=== PATIENT | female | born 1995 ===

== ENCOUNTER 2020-09-10 16:24 | Inpatient (IN) | payer OTHER ==
--- NOTE | 2020-09-10 17:10 | History and Physical Report ---
History of Present Illness Date of examination: 09/10/20 Date of admission: 09/10/20 Chief complaint: c/o uc since this am History of present illness: 24 y/o presents to [facility] in active labor. Pt states she has been having uc since this am. She denies LOF or VB. Pt initiated her pnc at [facility] @ 10wks. Pt states she has had an uncomplicated preg w/o problems. Med/surg/social/family hx is unremarkable. Her GBS is neg and she is rubella NI. She was admitted to L&D for delivery. Past History Past Medical History: no pertinent history Past Surgical History: no surgical history Family/Genetic History: none Social history: no significant social history, full code - Obstetrical History Expected Date of Delivery: 09/24/20 Actual Gestation: 38 Week(s) 0 Day(s) : 1 Para: 0 Medications and Allergies Allergies Allergy/AdvReac Type Severity Reaction Status Date / Time No Known Allergies Allergy Verified 09/10/20 17:04 Home Medications Medication Instructions Recorded Confirmed Last Taken Type Monistat 7 Vag Cream cream VG 09/10/20 1 Day Ago History ~09/09/20 One Daily Tablet 1 tab PO DAILY 09/10/20 09/10/20 1 Day Ago History ~09/09/20 Review of Systems All systems: negative Eyes: deferred Ears, nose, mouth and throat: deferred Breasts: normal Genitourinary: normal appearance Rectal Exam: normal exam-external/orifice - Vital Signs Vital signs: Vital Signs Pulse BP Pulse Ox 81 110/66 100 09/10/20 16:45 09/10/20 16:45 09/10/20 16:45 Temp Pulse Resp BP Pulse Ox 97.6 F 78 15 111/74 97 09/10/20 16:49 09/10/20 17:02 09/10/20 16:49 09/10/20 17:02 09/10/20 16:55 - Physical Exam Breasts: Positive: normal Abdomen: Positive: normal appearance, soft, normal bowel sounds Genitourinary (Female): Positive: normal external genitalia, normal perenium Vulva: both: normal Vagina: Positive: normal moisture Uterus: Positive: enlarged, normal contour, other (gravid) Adnexa: both: normal Anus/Rectum: Positive: normal perianal skin Extremities: Positive: normal - Obstetrical FHR: auscultation normal, category 1 Uterine Contraction Monitor Mode: External Cervical Dilatation: 9 Cervical Effacement Percentage: 100 station: -2 Uterine Contraction Pattern: Regular Uterine Tone Measurement Phase: Resting Uterine Contraction Intensity: Strong/Firm Results All other labs normal. Assessment and Plan A: IUP@ 38.1 wks Rubella NI p: Admit to L&D Continuos monitoring Offer rubella vaccine pp Anticipate - Patient Problems (1) Supervision of normal IUP (intrauterine ) in primigravida Current Visit: Yes Status: Acute (2) GBS screening not performed Current Visit: Yes Status: Acute
[2020-09-10] MEDS ORDERED: LACTATED RINGERS 1,000 ML ONE (17:15)
[2020-09-10] MEDS ORDERED: LOPERAMIDE 2 MG CAP PO PRN (17:16)
[2020-09-10] MEDS ORDERED: CARBOPROST TROMETHAMINE 250 MCG/1 ML INJ IM PRN (17:16)
[2020-09-10] MEDS ORDERED: MINERAL OIL 30 ML ORAL LIQD PO PRN ×2 (17:16→19:24)
[2020-09-10] MEDS ORDERED: TERBUTALINE 1 MG/1 ML INJ SUB-Q PRN (17:16)
[2020-09-10] MEDS ORDERED: AMPICILLIN/NS 2 GM/100 ML 2 GM/100 ML BAG IV ONE (17:16)
[2020-09-10] MEDS ORDERED: ePHEDrine SULFATE 50 MG/1 ML INJ IV PRN (17:16)
[2020-09-10] MEDS ORDERED: miSOPROStol 200 MCG TAB PR PRN (17:16)
[2020-09-10] MEDS ORDERED: LIDOCAINE (2%) 20 MG/1 ML VIAL 20 ML MDV INFILTRATI ONE (17:16)
[2020-09-10] MEDS ORDERED: METHYLERGONOVINE MALEATE 0.2 MG/ML VIAL IM PRN (17:16)
[2020-09-10] MEDS ORDERED: OXYTOCIN 10 UNIT/1 ML INJ IM PRN (17:16)
[2020-09-10] MEDS ORDERED: LACTATED RINGERS 1,000 ML IV SCH (17:30)
[2020-09-10 17:53] LABS: Hematocrit 37.4 % (30.3-42.9); Hemoglobin 12.5 gm/dl (10.1-14.3); Mean Corpuscular HGB Conc 34 % (30-34); Mean Corpuscular Volume 88 fl (79-97); Platelet Count 240 K/mm3 (140-440); Red Blood Count 4.24 M/mm3 (3.65-5.03); Red Cell Distribution Width 14.4 % (13.2-15.2)
[2020-09-10] MEDS ORDERED: OXYTOCIN DRIP 30 UNITS/500 ML BAG IV SCH ×2 (18:00)
[2020-09-10] MEDS ORDERED: PROMETHAZINE 25 MG RECT SUPP PR PRN (18:59)
[2020-09-10] MEDS ORDERED: diphenhydrAMINE 25 MG CAP PO PRN (18:59)
[2020-09-10] MEDS ORDERED: PROMETHAZINE 25 MG TAB PO PRN (18:59)
[2020-09-10] MEDS ORDERED: WITCH HAZEL/ GLYCERIN PAD TP PRN (18:59)
[2020-09-10] MEDS ORDERED: MAGNESIUM HYDROXIDE (MOM) ORAL LIQD UDC PO PRN (18:59)
[2020-09-10] MEDS ORDERED: LANOLIN/ZINC/DIMETHICONE (LANSINOH) 7 GM TP PRN (18:59)
[2020-09-10] MEDS ORDERED: ONDANSETRON 4 MG/2 ML INJ IV PRN (18:59)
[2020-09-10] MEDS ORDERED: IBUPROFEN 600 MG TAB PO SCH (19:00)
--- NOTE | 2020-09-10 19:07 | Procedure Note ---
OB Delivery Note - Delivery Date of Delivery: 09/10/20 Surgeon: ARLETTE FORTE Estimated blood loss: 100cc - Vaginal Delivery presentation: vertex Delivery position: OP Intrapartum events: precipitous labor- <3hr Delivery induction: none Delivery monitor: external FHT, external uterine Route of delivery: Delivery placenta: spontaneous Delivery cord: 3 umbilical vessels Episiotomy: none Delivery laceration: none Anesthesia: none Delivery comments: Called to for delivery. SVE 10/100%/0 and pt was pushing. of a live viable female infant in OP position. Spontaneous delivery of head and shoulders. Infant was placed on mom's chest/abd for skin to skin bonding. Delayed cord clamping while NICU nurse dried and stimulated baby. Cord was clamped x 2 and FOB was guided in cutting the cord. Baby was taken to warmer by NICU nurse for an asses; 8/9. Spontaneous delivery of an intact placenta with 3CV. FF@ U3 with fundal massage and IV Pitocin. An exploration of tears revealed none. QBL 178cc. FW 3019 Gms. Mom and baby was left in stable condition with nurse. - A at 1 minute: 8 at 5 minutes: 9 (FW 3019 Gms) Infant Gender: Female
[2020-09-10] MEDS ORDERED: AMPICILLIN/NS 1 GM/50 ML 1 GM/50 ML BAG IV SCH (22:00)
[2020-09-10] MEDS: IBUPROFEN 600 MG TAB PO SCH (22:02)
[2020-09-11] MEDS: IBUPROFEN 600 MG TAB PO SCH ×3 (05:22→17:55)
[2020-09-11 11:25] LABS: Hematocrit 32.7 % (30.3-42.9); Hemoglobin 10.7 gm/dl (10.1-14.3)
--- NOTE | 2020-09-11 13:51 | Progress Note ---
Assessment and Plan A: day 1 S/P . Anemia. P: Supplement with iron. Repeat CBC; UA ordered. Continue routine care. Subjective - Subjective Date of service: 09/11/20 Principal diagnosis: day 1 S/P Patient reports: appetite normal, voiding normally, pain well controlled, flatus, ambulating normally, no dizzy ambulation, no nauseated : doing well Objective - Vital Signs Latest vital signs: Vital Signs Temp Pulse Resp BP BP Pulse Ox 09/11/20 12:22 98.0 F 98 H 20 108/61 96 09/11/20 07:26 98.0 F 83 20 90/49 98 09/11/20 05:22 20 09/11/20 04:17 97.8 F 85 18 100/58 96 09/10/20 22:06 97.7 F 83 20 109/80 100 09/10/20 22:02 18 09/10/20 20:02 75 107/53 09/10/20 19:02 71 102/59 09/10/20 18:58 58 L 79 L 09/10/20 18:57 79 100 09/10/20 18:52 97 H 87 09/10/20 18:50 96 H 83 L 09/10/20 18:47 79 112/60 100 09/10/20 18:45 89 69 L 09/10/20 18:42 66 98 09/10/20 18:40 99 H 92 09/10/20 18:37 95 09/10/20 18:34 89 88 09/10/20 18:32 78 136/105 81 L 09/10/20 18:28 105 H 93 09/10/20 18:27 108 H 98 09/10/20 18:23 200 H 94 09/10/20 18:22 85 96 09/10/20 18:18 79 L 09/10/20 18:17 87 134/61 97 09/10/20 18:13 65 92 09/10/20 18:12 92 H 96 09/10/20 18:07 89 93 09/10/20 18:03 85 125/59 09/10/20 18:02 100 H 96 09/10/20 18:00 94 09/10/20 17:57 90 99 09/10/20 17:52 99 H 97 09/10/20 17:50 99 H 84 09/10/20 17:47 97 H 98 09/10/20 17:45 57 L 09/10/20 17:42 98 H 99 09/10/20 17:39 105 H 93 09/10/20 17:36 75 100 09/10/20 17:32 83 92 09/10/20 17:31 75 89 09/10/20 17:26 82 98 09/10/20 17:21 88 97 09/10/20 17:16 89 97 09/10/20 17:11 97.6 F 83 20 99 09/10/20 17:02 78 111/74 09/10/20 16:55 74 97 09/10/20 16:50 91 H 99 09/10/20 16:49 97.6 F 80 15 110/66 99 09/10/20 16:45 77 110/66 100 Intake and Output 09/10/20 09/11/20 09/11/20 23:59 07:59 15:59 Intake Total 240 240 200 Output Total 600 Balance 240 -360 200 Intake: Oral 200 Intake, Free Water 240 240 Output: Urine 600 Void 600 Other: Total, Intake Amount 200 Total, Output Amount 600 # Voids Void 1 Weight 72.121 kg Estimated Blood Loss 178 - Exam Cardiovascular: Present: Regular rate Lungs: Present: Clear to auscultation Abdomen: Present: normal appearance, soft. Absent: distention, tenderness, guarding, rigidity Uterus: Present: normal, firm, fundal height below umbilicus. Absent: bogginess, tenderness Extremities: Present: normal. Absent: tenderness, edema - Labs Labs: Abnormal lab results 09/10/20 Range/Units 17:05 WBC 15.3 H (4.5-11.0) K/mm3
[2020-09-11] MEDS: FERROUS SULFATE 325 MG TAB PO SCH (16:14)
[2020-09-12] MEDS: FERROUS SULFATE 325 MG TAB PO SCH ×2 (02:00→09:48)
[2020-09-12] MEDS: IBUPROFEN 600 MG TAB PO SCH ×2 (06:04)
[2020-09-12 08:55] LABS: Basophils % (Auto) 0.4 % (0.0-1.8); Eosinophils # (Auto) 0.1 K/mm3 (0.0-0.4); Eosinophils % (Auto) 0.6 % (0.0-4.3); Hemoglobin 9.8 gm/dl (10.1-14.3); Lymphocytes # (Auto) 2.5 K/mm3 (1.2-5.4); Lymphocytes % (Auto) 23.9 % (13.4-35.0); Mean Corpuscular HGB Conc 34 % (30-34); Mean Corpuscular Volume 90 fl (79-97); Monocytes # (Auto) 0.7 K/mm3 (0.0-0.8); Monocytes % (Auto) 6.7 % (0.0-7.3); Platelet Count 200 K/mm3 (140-440); Red Blood Count 3.22 M/mm3 (3.65-5.03); Red Cell Distribution Width 14.8 % (13.2-15.2)
[2020-09-12 10:04] LABS: Bilirubin,Urine NEG (Negative); Blood,Urine LG (Negative); Color,Urine Red (Yellow); Mucus,Urine FEW /HPF; Urobilinogen,Urine < 2.0 mg/dL (<2.0)
[2020-09-12 10:05] LABS: RBC,Urine > 182.0 /HPF (0.0-6.0); WBC,Urine > 182.0 /HPF (0.0-6.0)
--- NOTE | 2020-09-12 11:23 | Discharge Summary ---
Providers - Providers Date of Admission: 09/10/20 18:59 Date of discharge: 09/12/20 Attending physician: ESTEBAN LOPEZ MD Primary care physician: ESTEBAN LOPEZ MD Hospitalization Reason for admission: active labor Delivery: Laceration: none Incision: normal complications: none Discharge diagnosis: IUP at term delivered Hospital course: BENIGN Disposition: DC-01 TO HOME OR SELFCARE - Discharge Diagnoses (1) Supervision of normal IUP (intrauterine ) in primigravida Status: Acute (2) GBS screening not performed Status: Acute Plan - Provider Discharge Summary Activity: routine, no sex for 6 weeks, no heavy lifting 4 weeks Diet: routine Additional instructions: [] Smoking cessation referral if applicable(refer to patient education folder for contact #) [] Refer to [facility] Booklet Call your doctor immediately for: * Fever > 100.5 * Heavy vaginal bleeding ( >1 pad per hour) * Severe persistent headache * Shortness of breath * Reddened, hot, painful area to leg or breast * Drainage or odor from incision. * Keep incision clean and dry at all times and follow doctor's instructions regarding bathing/showering - Follow up plan
[2020-09-12 14:27] VITALS: BP 107/69
== END 2020-09-12 15:20 | disposition home or self-care (01) | DRG 807 ==
LOC: TRG 16:24 → APU 16:28 → LD 17:10 → TRG 17:16 → LD 17:16 → UNDOADMIN 17:16 → LD 18:59 → OB 21:43
PROC: 10E0XZZ Delivery of Products of Conception, External Approach (ICD-10-PCS; principal; 2020-09-10)
DX: O62.3 Precipitate labor (principal); Z37.0 Single live birth; Z20.822 Contact with and (suspected) exposure to COVID-19; Z3A.38 38 weeks gestation of pregnancy; O99.02 Anemia complicating childbirth; D64.9 Anemia, unspecified
CPT/HCPCS: 36415; 81001; 85014; 85018; 85025; 85027; 86850; 86900; 86901; G0378; J7120; U0003